=== PATIENT | male | born 1970 | race Caucasian/White ===

== ENCOUNTER 2024-04-18 07:19 | Day surgery (SDC) | payer SELFPAY ==
[2024-04-18] VITALS (11 sets, daily range): BP systolic 125–139; BP diastolic 79–91; PULSE 57–66; RESP 16–18; TEMP 36.2–37; O2SAT 89–96; BMI 36.8
--- NOTE | 2024-04-18 08:47 | PCM.PRE.AN2 ---
ASA Classification* ASA Classification ASA Classification: 2 Assessment & Plan Anesthesia* Anesthesia Assessment Anesthesia Assessment: Discussed sedation and/or anesthesia options, risks, benefits, and alternatives with patient/parents/legal guardian/POA. Questions invited. The patient/parents/legal guardian/POA seems to understand and agrees to proceed with anesthesia plan. Reviewed the physical assessment, medical history, allergy history and patient home medications list prior to surgery/procedure/anesthetic and documented any changes. Performed airway and anesthesia risk assessments. Anesthesia Type Anesthesia Type: General and Block Anesthesia Focused Assessment* Temperature: 98.6 F Pulse Rate: 66 Blood Pressure: 129/91 Respiratory Rate: 18 Pulse Ox: 95 Airway Assessment Mouth opens: >3 cm Mallampati Score: II Focused Labs Anesthesia Preop lab: CBC CHEMISTRY COAG Pre-Assessment Diagnosis/Proposed Procedure Planned Operative Procedure(s): RIGHT SHOULDER ARTHROSCOPY WITH RTC REPAIR LABRAL REPAIR MINI OPEN BICEPS TENODESIS Anesthesia History Anesthesia History - movement therapist: Anesthesia History - movement therapist Hx Hospitalization No 04/16/24 14:50 Any Problems With Anesthesia No 04/16/24 14:50 Cholinesterase deficiency No 04/16/24 14:50 You/Your Family Experience No 04/16/24 14:50 fever (hyperthermia) with Relationship Recent Exposure to Contagious No 04/18/24 07:50 Disease Does patient have nerve No 04/16/24 14:50 stimulator Patient instructed to have device shut off --Does patient have Pacemaker No 04/18/24 07:50 or ICD? When Was Last Pacemaker Check QUESTION #4 FULL TEXT: You/Your Family Experience fever (hyperthermia) with Anesthesia Last Oral Intake Last Oral intake: Last Oral Intake NPO since 00:00 04/18/24 07:50 Meds taken in AM with sips of No 04/18/24 07:50 water? Meds patient instructed to take am of surgery PONV PONV - movement therapist: PONV - movement therapist Female No 04/16/24 14:50 HX of Motion Sickness No 04/16/24 14:50 HX of N/V After Surgery No 04/16/24 14:50 Non-Smoker Yes 04/16/24 14:50 Duration of Surgery greater Yes 04/16/24 14:50 than 60 minutes Number of Risk Factors 2 04/16/24 14:50 PONV Score Moderate Risk 04/16/24 14:50 Height & Weight Height & Weight: Anesthesia: Height & Weight Height 5 ft 7 in 04/18/24 07:50 Weight: 106.6 kg 04/18/24 07:50 Body Mass Index (BMI) 36.8 04/18/24 07:50 Respiratory Assessment Respiratory Assessment - movement therapist: Respiratory Tract Infection Hx - movement therapist Hx Respiratory Tract Infection No 04/16/24 14:50 STOP Sleep Apnea STOP Sleep Apnea - movement therapist: STOP Sleep Apnea - movement therapist Hx Hypertension No 04/16/24 14:50 Hx Sleep Apnea No 04/16/24 14:50 CPAP BIPAP Do you snore loudly (louder Yes 04/16/24 14:50 than talking or can be heard Do you often feel tired/ No 04/16/24 14:50 fatigued/ sleepy during daytime? Has anyone observed you stop No 04/16/24 14:50 breathing during sleep? STOP Results Negative 04/16/24 14:50 QUESTION #5 FULL TEXT : Do you snore loudly (louder than talking or can be heard through closed doors)? Tobacco Use History Tobacco Use History - movement therapist: Tobacco Use History - movement therapist Tobacco Use Smoking Status Never smoker 04/16/24 14:50 Hx Tobacco Use No 04/16/24 14:50 Years Smoking Packs Smoked per Day Smoking Cessation Date was within the last 15 years Hx Smoking Cessation Date Hx Smoking Cessation Counseling Hematologic Medial History Hematologic Hx - movement therapist: Hematologic Medical Hx - vest front presser Hx of Blood Transfusion No 04/16/24 14:50 Hx of Transfusion in last 3 No 04/16/24 14:50 Months Date of Last Transfusion (if within last 3 months) Ever experience any problems No 04/16/24 14:50 with transfusion(s)? Specify any problems Hx of Preganancy in last 3 N/A 04/16/24 14:50 Months Nurse Filling Out Transfusion DSCHRIBER 04/16/24 14:50 & Questions: Date: 04/16/24 04/16/24 14:50 Time: 14:51 04/16/24 14:50 Patient unable to answer at this time (ie. confused, unrespo /Reproduction History /Reproductive History - movement therapist: /Reproductive Hx- movement therapist Hx Now No 04/16/24 14:50 Gestational Age (in weeks): EDC: Hx Hx Para Hx Section SAB No 04/16/24 14:50 Active Medications Active Medications: Current Medications Generic Name Dose Route Start Last Admin Trade Name Freq PRN Reason Stop Dose Admin Cefazolin Sodium 2 gm/ N/A 20 mls @ 400 mls/hr 04/18/24 09:10 IV 04/18/24 09:12 PREOP ONE Sodium Chloride 1,000 mls @ 15 mls/hr 04/18/24 08:10 IV 04/23/24 21:29 .Q48H [facility] Protocol PFSH Medical History Wears hearing aid Wears glasses Cancer Alcohol use History of steroid therapy Injury of head and neck Hx of ulcerative colitis Non-smoker Leg cramps Hx of dislocation of shoulder Hx of fracture of ankle Home Medications ?Medication ?Instructions ?Recorded ?Last Taken ?Type adalimumab 40 mg/0.8 mL 40 mg subcut Q14D 04/16/24 04/09/24 History subcutaneous syringe kit (Humira) multivitamin (Daily Multi-Vitamin 1 tab PO DAILY 04/16/24 04/14/24 History tablet) Allergy/AdvReac Type Severity Reaction Status Date / Time No Known Allergies Allergy Verified 04/18/24 07:46 Surgical History Hx of colonoscopy Social History Smoking Status: Never smoker Review of Systems (Anesthesia) ROS Narrative System reviewed and no additional complaints, except as documented.
[2024-04-18] MEDS: Cefazolin 2 GM in Syringe IV (09:00)
[2024-04-18] MEDS: Epinephrine (1 mg/ml) 1 MG/ML VIAL (09:43)
[2024-04-18] MEDS: Bupiv/Epi 0.25% 30 ML Vial (10:48)
--- NOTE | 2024-04-18 11:33 | PCM.OPRPT ---
Operative Report (Standard) Operative Information Date of Procedure: 04/18/24 Pre-Operative Diagnosis: 1. Right shoulder Bankart labral tear 2. Right shoulder rotator cuff tear 3. Right shoulder long head of biceps tendon tendinosis and instability Post-Operative Diagnosis: 1. Right shoulder Bankart labral tear 2. Right shoulder rotator cuff tear 3. Right shoulder long head of biceps tendon tendinosis and instability 4. Right humeral head chondromalacia Surgery/Procedure Performed: 1. Right shoulder arthroscopic Bankart labral repair, rotator cuff repair, chondroplasty. 2. Right shoulder mini open subpectoral biceps tenodesis director of in service education: Yes Art Gallery Director: Leslie Valles Tasks completed by dental chairside assistant: Opening & closing, Implanting device, Hemostasis: Electrocautery and Retracting Additional assistant spa director?: No Type of Anesthesia: General/Regional RN Documented Start/Stop Times: Operation Date: 04/18/24 09:10 Case Time Into Pre-Op 04/18/24 07:46 Anesthesia Start 04/18/24 09:00 Into Room 04/18/24 09:00 Out of Pre-Op 04/18/24 09:00 Procedure Start 04/18/24 09:25 Procedure End 04/18/24 11:01 Anesthesia End 04/18/24 11:08 Out of Room 04/18/24 11:08 Into Recovery 04/18/24 11:10 Procedure Start Time: 09:25 Procedure Stop Time: 11:01 Select all DRAINS/GRAFTS/IMPLANTS that apply: Implanted device Implanted device details: Arthrex push lock anchor x 2, Arthrex fiber tack anchor x 2, Arthrex bio composite 4.75 mm swivel lock anchor x 2, Arthrex metallic biceps button Estimated Blood Loss: 25 cc Specimen collected: No Description of surgery: Patient was identified in preoperative holding area by name, medical record number, date of . The operative extremity was marked. All questions were answered to the patient satisfaction. Interscalene block was administered by anesthesia staff prior to the procedure. At time of his procedure, patient brought the operative suite and positioned supine with the operative table. General anesthesia was induced and endotracheal tube placed. Patient was then positioned in a lateral decubitus position with the right side up. An axillary roll was placed. All bony prominences were well-padded. We prepped and draped the right upper extremity in normal, sterile orthopedic fashion. We performed timeout confirming the side, site, operation to be performed. No concerns were voiced and we elected to proceed with surgery. 2 g Ancef was administered IV prior to incision by anesthesia staff. Right upper extremity was placed in traction with 10 pounds of traction force applied to the right arm throughout the arthroscopic portion of the case, approximately 1 hour. Standard posterior portal established 2 fingerbreadths inferior and medial to the posterior lateral border of the scapular spine. Blunt tipped trocar was used to garcia the glenohumeral joint. Arthroscopic cannula was used to fill the joint with normal saline with epinephrine. Arthroscope was introduced. Labral tearing and rotator cuff tearing was evident. Low anterior interval portal was established and rigid cannula placed. An accessory anterior superior lateral portal was also established with what rigid cannula placed. I then examined the shoulder. Glenoid appeared pristine. Chondromalacia was noted in the humeral head with questionable chondral injury from the dislocation. Unstable chondral flaps were debrided with the arthroscopic shaver. Bankart labral tear was encountered. I used an elevator to free the labrum from adhesions. I turned my attention to the long head biceps tendon. There is fraying at the superior labrum without rose SLAP tear. Biceps tenotomy was performed due to known biceps instability and tendinosis. Tenotomy was performed at the biceps labral junction with arthroscopic cautery. The tendon was allowed to retract into the intertubercular groove. The superior labrum was then debrided with the arthroscopic shaver to a stable rim. I then proceeded with fixation of the labrum. A 90 degree lasso was used to shuttle a fiber link suture through the anterior labrum near the end 4 o'clock position incorporating anterior capsule. The fiber link suture was cinched and then I placed a push lock anchor at the 4 o'clock position in standard fashion with good fixation. Lasso was used to shuttle and an additional fiber link suture at the 3 o'clock position in similar fashion. Push lock anchor was placed at the 3 o'clock position. Sutures were cut flush with the anchors. There was good reapproximation of the labral bumper with tensioning of the anterior capsule. I then debrided the articular side of the supraspinatus which was completely torn and retracted near the glenoid. I then withdrew the arthroscope. I reentered the shoulder in the subacromial space. Limited bursectomy was performed. Adhesions were released from the rotator cuff. There was good mobility of the rotator cuff. I proceeded with double row fixation. 2 all suture fiber tack anchors were placed via percutaneous portal at the articular margin approximately 1 cm apart. Sutures were retrieved out the anterior portal. I then passed the swedged fiber tape sutures sequentially with a scorpion suture passer at the musculotendinous junction of the supraspinatus. The conjoint sutures were then in a limb from each suture was then retrieved at the lateral portal. Sutures were tensioned after placing through a eyelet of a swivel lock anchor. Posterior lateral row anchor was placed first in standard fashion with self punching mechanism. Sutures were cut flush with the anchor. Anterior lateral row anchor was then placed 1 cm anterior to the posterior anchor with excellent cortical purchase. There is a central dogear noted which was reduced with the self locking mechanism in the posterior lateral anchor with excellent reapproximation of [place] cuff tissue and good compression at the footprint. Final arthroscopic images were obtained. The subacromial space was thoroughly lavaged. Instruments were removed. I then took the arm out of traction. An oblique incision was made approximately 2 cm in length at the level of the pectoralis major insertion. Blunt dissection was carried in the subcutaneous plane down to level of fascia. Fascia was opened inferior to the pectoralis major. The pectoralis major was retracted laterally and the short of the biceps retracted medially. Long head biceps tendon was identified and retrieved out of the wound. Tendinosis was noted in the intertubercular portion of the tendon. I then used a fiber loop suture to perform a whipstitch near the musculotendinous junction. The intercalary portion of the tendon was then amputated. I then passed limbs of the suture alternating through a biceps button. Periosteum was elevated in the subpectoral region of the humerus. I drilled unit cortically for an onlay tenodesis. Button was placed through the drill hole and flipped. Sutures were tensioned and tied. Tenodesis was stable. Wound was copiously irrigated with normal saline solution. Field block was administered with 10 cc quarter percent bupivacaine with epinephrine. Dermis was reapproximated buried 3-0 Vicryl suture. Skin was finally reapproximated with a running subcuticular 4-0 Monocryl and Dermabond. Portal sites were closed in interrupted [id number] fashion with 3-0 nylon suture. Bulky sterile compression dressing was applied. Patient was placed in an UltraSling. He was safely ectopy in the operative suite and awakened from anesthesia. He tolerated the procedure well without apparent complication. He was transferred to his gurney and subsequently to PACU in stable condition. Postoperative plan: Follow-up in 2 weeks for suture removal. PT to start in 2 weeks Sling x 6 weeks Oxycodone prescription provided, Tylenol and ibuprofen encouraged Aspirin 81 mg twice daily for DVT prophylaxis beginning postoperative day #1 May shower in 2 days if portal sites are dry Surgical Findings: Bankart labral tear, biceps tendinosis, labral fraying, chondromalacia humeral head, full-thickness retracted supraspinatus tear Complications Complications: No Admit VTE Documentation VTE Present on Admission: No VTE Mechan Device Prophylaxis: SCD's VTE Pharm Prophylaxis ordered?: Yes
--- NOTE | 2024-04-18 12:13 | PCM.POST.ANE ---
Anesthesia: Postop Eval I Current Vital Signs Temperature: 97.1 F Pulse Rate: 59 Blood Pressure: 135/90 Respiratory Rate: 16 Pulse Ox: 93 Oxygen Delivery Method: Room Air Assessment Airway patent: Yes Spontaneous unlabored respirations: Yes nausea: No Vomiting: No Anesthesia Complication: No Fluid Hydration Crystalloid volume administer (ml): 1,000 Total IV fluid infused: 1,000 Progress Note Anesthesia document: Postop Eval 1 completed: Yes
--- NOTE | 2024-04-18 12:14 | PCM.POSTANE2 ---
Anesthesia Postop Eval I Sum Postop Eval Completion status Anesthesia document: Postop Eval 1 completed: Yes Anesthesia Postop Eval I Summary Anesthesia Postop Eval I Summary: Anesthesia Postop Eval I: Assessment Summary Airway patent Yes 04/18/24 12:14 Spontaneous unlabored Yes 04/18/24 12:14 respirations Mental status nausea No 04/18/24 12:14 Vomiting No 04/18/24 12:14 Anesthesia Postop Eval I: Fluid Summary Crystalloid volume administer 1,000 04/18/24 12:14 (ml) Colloids volume administered ( ml) Blood Product volume administered (ml) Total IV fluid infused 1,000 04/18/24 12:14 Anesthesia Postop Eval I: Summary Notes Anesthesia Complication No 04/18/24 12:14 Anesthesia Complication Comment: Post-operative progress note Anesthesia: Postop Eval II Evaluation Mental status: Awake Pain Level: 2 nausea: No Vomiting: No
== END 2024-04-18 12:54 | disposition home or self-care (01) ==
LOC: SDC 07:29 → AC 07:30
PROVIDERS: PCP Family Medicine; Referring Provider Student in an Organized Health Care Education/Training Program; Visit Provider Student in an Organized Health Care Education/Training Program
PROC: (CPT 29827; principal; 2024-04-18 08:50)
DX: S46.011A Strain of muscle(s) and tendon(s) of the rotator cuff of right shoulder, initial encounter (principal); S43.431A Superior glenoid labrum lesion of right shoulder, initial encounter; M67.813 Other specified disorders of tendon, right shoulder; M94.211 Chondromalacia, right shoulder; M25.311 Other instability, right shoulder; X58.XXXA Exposure to other specified factors, initial encounter; R03.0 Elevated blood-pressure reading, without diagnosis of hypertension; E66.9 Obesity, unspecified; Z68.37 Body mass index [BMI] 37.0-37.9, adult; Z71.3 Dietary counseling and surveillance; Z86.16 Personal history of COVID-19
CPT/HCPCS: 29827; 29806; 23430; 64415; 01630; C1713; J2405